=== PATIENT | female | born 1995 | race Caucasian/White ===

== ENCOUNTER → 2017-06-21 | Outpatient (CLI) | payer BC ==
[2017-06-21 11:19] LABS: PROLACTIN 24.87 ng/mL
[2017-06-24 12:21] LABS: ILGF1 Z SCORE FEMALE 0.5 SD (-2.0 - +2.0); INSULIN LIKE GROWTH FACTOR-I 289 ng/mL (83-456)
== END | disposition home or self-care (01) ==
LOC: C.LAB1850 09:43
PROVIDERS: ATTEND Internal Medicine Endocrinology, Diabetes & Metabolism
DX: E22.1 Hyperprolactinemia (principal); E23.6 Other disorders of pituitary gland; Z87.42 Personal history of other diseases of the female genital tract